=== PATIENT | male | born 1940 | race Caucasian/White ===

== ENCOUNTER → 2023-09-08 | Outpatient (REF) | payer MEDICARE | LOC: M SFHCDERM 08:13 | PROVIDERS: ATTEND Nurse Practitioner Family | DX: C44.42 Squamous cell carcinoma of skin of scalp and neck (principal) ==

== ENCOUNTER → 2024-03-06 | Outpatient (REF) | payer MEDICARE | LOC: M SFHCDERM 17:19 | PROVIDERS: ATTEND Nurse Practitioner Family | DX: C44.222 Squamous cell carcinoma of skin of right ear and external auricular canal (principal) ==